=== PATIENT | female | born 1950 | race Two or more races ===

== ENCOUNTER 2017-07-07 14:22 | Emergency (ER) | payer MEDICARE, MEDICAID ==
[~2017-07-07] VITALS: Ht 165.1 cm; Wt 76.2 kg
[~2017-07-07 14:22] MED LIST: DOCU100T2 PO; LEVO500T2 PO; METO25TA6 PO; MULT1CAP34 PO; NITR100C15 PO
--- NOTE | 2017-07-07 16:20 | NUR ---
pt bibra from home to er bed 09. c/o epigastric pain w/ nausea and vomiting since last night. no diarrhrea. 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 awaiting md boyd.
--- NOTE | 2017-07-07 16:25 | NUR ---
dr burgos at bedside for eval.
[2017-07-07] MEDS ORDERED: METOCLOPRAMIDE HCL 10 MG/2 ML VIAL IV ONE (16:30)
[2017-07-07] MEDS ORDERED: FAMOTIDINE (20 MG) 20 MG TABLET PO ONE (16:30)
--- NOTE | 2017-07-07 16:37 | NUR ---
iv line started blood drawn and sent to lab.
--- NOTE | 2017-07-07 16:40 | NUR ---
radiology at bedside for chest xray.
[2017-07-07 16:42] LABS: BASOPHILS % (AUTO) 0.5 % (0.0-2.0); EOSINOPHILS % (AUTO) 0.1 % (0.0-6.0); HEMATOCRIT 37 % (33-45); HEMOGLOBIN 12.5 g/dL (11.5-14.8); LYMPHOCYTES # (AUTO) 1.3 /CMM (0.8-4.8); LYMPHOCYTES % (AUTO) 22.8 % (20.0-44.0); MEAN CORPUSCULAR HEMOGLOBIN 32 PG (26.0-33.0); MEAN CORPUSCULAR HGB CONC 34 g/dl (31.0-36.0); MEAN CORPUSCULAR VOLUME 94 fL (82-100); MONOCYTES # (AUTO) 0.3 /CMM (0.1-1.30); MONOCYTES % (AUTO) 5.6 % (2.0-12.0); NEUTROPHILS # (AUTO) 4.1 /CMM (1.8-8.9); PLATELET COUNT (AUTO) 266 /CMM (150-450); RDW COEFFICIENT OF VARIATION 12.6 (11.5-15.0); RED BLOOD CELL COUNT(AUTO) 3.94 MIL/uL (4.0-5.2); WHITE BLOOD COUNT (AUTO) 5.7 K/uL (4.3-11.0)
[2017-07-07] MEDS ORDERED: METOCLOPRAMIDE HCL 10 MG/2 ML VIAL ONE (16:54)
[2017-07-07] MEDS ORDERED: FAMOTIDINE (20 MG) 20 MG TABLET ONE (16:55)
[2017-07-07 16:57] LABS: ALBUMIN 3.9 g/dL (3.4-5.0); BILIRUBIN,TOTAL 0.3 mg/dL (0.2-1.0); CREATININE 0.8 mg/dL (0.6-1.3); POTASSIUM 3.9 mmol/L (3.5-5.1); TOTAL PROTEIN, SERUM 11.1 g/dL (6.4-8.2)
[2017-07-07 17:16] LABS: APPEARANCE,URINE Slightly Cloudy (CLEAR); BILIRUBIN,URINE Negative (NEGATIVE); BLOOD, URINE Small Ery/uL (NEGATIVE); COLOR,URINE Yellow (YELLOW); KETONES,URINE 80 (NEGATIVE); LEUKOCYTE ESTERASE ,URINE Small (NEGATIVE); NITRITE, URINE Positive (NEGATIVE); PROTEIN,URINE Negative (NEGATIVE); UGLUCOSE Negative (NEGATIVE); UROBILINOGEN,URINE 0.2 EU/dL (0.2)
[2017-07-07 17:31] LABS: BACTERIA,URINE Many /HPF (None Seen); SQUAMOUS EPITHELIAL CELL,UR Few /HPF (None Seen)
[2017-07-07] MEDS ORDERED: LABETALOL HCL IV 100MG VIAL ONE (18:33)
--- NOTE | 2017-07-07 18:35 | NUR ---
pt/'s b/p 182/107. dr burgos made aware. labetalol 10mg ivp given prior to transport.
--- NOTE | 2017-07-07 18:45 | NUR ---
.called [facility] endorsing pt's b/p. pt is asymptomatic. denies headache or sob. d/c back to [facility], [place]. stable condition. IV removed. Catheter intact and site benign. Pressure and 4x4 applied to site. No bleeding noted.
[2017-07-07 18:48] VITALS: BP 182/101
[2017-07-07] MEDS ORDERED: LABETALOL HCL IV 100MG VIAL IV ONE (19:00)
== END 2017-07-07 18:49 | disposition home or self-care (01) ==
LOC: ER 14:24
DX: N39.0 Urinary tract infection, site not specified (principal); R10.13 Epigastric pain; R11.2 Nausea with vomiting, unspecified; I10 Essential (primary) hypertension
CPT/HCPCS: 36415; 71045; 80048; 80076; 81001; 83690; 84484; 85025; 87077; 87086; 87186; 93005; 96374; 99285; A4606; J2765; J3490; 81000-TC; Z7610

== ENCOUNTER 2017-07-16 11:42 | Emergency (ER) | payer MEDICARE, MEDICAID ==
[~2017-07-16] VITALS: Ht 152.4 cm; Wt 90.7 kg
[2017-07-16 11:45] VITALS: BP 165/60
[2017-07-16] MEDS ORDERED: ONDANSETRON HCL/PF 4 MG/2 ML VIAL IVP ONE (15:30)
[2017-07-16] MEDS ORDERED: IV NS 0.9% 1,000 ML BAG IV ONE (15:30)
[2017-07-16] MEDS ORDERED: ONDANSETRON HCL/PF 4 MG/2 ML VIAL ONE (15:38)
--- NOTE | 2017-07-16 15:40 | NUR ---
IV ACCESS STARTED. JESUS DRAWN FOR LABS. MEDICATED ORDERED.
[2017-07-16 15:56] LABS: BASOPHILS % (AUTO) 0.3 % (0.0-2.0); EOSINOPHILS % (AUTO) 0.5 % (0.0-6.0); HEMATOCRIT 35 % (33-45); HEMOGLOBIN 12.1 g/dL (11.5-14.8); LYMPHOCYTES # (AUTO) 1.4 /CMM (0.8-4.8); LYMPHOCYTES % (AUTO) 30.1 % (20.0-44.0); MEAN CORPUSCULAR HEMOGLOBIN 32 PG (26.0-33.0); MEAN CORPUSCULAR HGB CONC 35 g/dl (31.0-36.0); MEAN CORPUSCULAR VOLUME 93 fL (82-100); MONOCYTES # (AUTO) 0.4 /CMM (0.1-1.30); MONOCYTES % (AUTO) 8.8 % (2.0-12.0); NEUTROPHILS # (AUTO) 2.8 /CMM (1.8-8.9); NEUTROPHILS % (AUTO) 60.3 % (43.0-81.0); PLATELET COUNT (AUTO) 271 /CMM (150-450); RDW COEFFICIENT OF VARIATION 12.7 (11.5-15.0); RED BLOOD CELL COUNT(AUTO) 3.75 MIL/uL (4.0-5.2); WHITE BLOOD COUNT (AUTO) 4.6 K/uL (4.3-11.0)
[2017-07-16] MEDS ORDERED: FAMOTIDINE (20 MG) 20 MG TABLET PO ONE (16:00)
--- NOTE | 2017-07-16 16:00 | NUR ---
MAXIMINO AT BS.
[2017-07-16] MEDS ORDERED: FAMOTIDINE (20 MG) 20 MG TABLET ONE (16:02)
--- NOTE | 2017-07-16 16:04 | NUR ---
PT TAKEN TO CT.
[2017-07-16 16:08] LABS: CALCIUM, SERUM 9.7 mg/dL (8.5-10.1); CARBON DIOXIDE 28 mmol/L (21-32); CHLORIDE 100 mmol/L (98-107); CREATININE 0.7 mg/dL (0.6-1.3); GLUCOSE 94 mg/dL (74-106); SODIUM SERUM 135 mmol/L (136-145); UREA NITROGEN, BLOOD 10 mg/dL (7-18)
[2017-07-16 16:13] LABS: ALANINE AMINOTRANSFERASE 20 U/L (12-78); ALBUMIN 3.7 g/dL (3.4-5.0); ALKALINE PHOSPHATASE 68 U/L (46-116); ASPARTATE AMINOTRANSFERASE 15 U/L (15-37); BILIRUBIN,DIRECT 0.1 mg/dL (0.0-0.2); BILIRUBIN,TOTAL 0.3 mg/dL (0.2-1.0); LIPASE 59 U/L (73-393); TOTAL PROTEIN, SERUM 10.2 g/dL (6.4-8.2)
[2017-07-16 16:15] LABS: TROPONIN I < 0.017 ng/mL (0.00-0.056)
[2017-07-16 17:18] LABS: APPEARANCE,URINE Clear (CLEAR); BILIRUBIN,URINE SMALL (NEGATIVE); BLOOD, URINE Trace-intact Ery/uL (NEGATIVE); COLOR,URINE Yellow (YELLOW); KETONES,URINE >=160 (NEGATIVE); LEUKOCYTE ESTERASE ,URINE Small (NEGATIVE); NITRITE, URINE Negative (NEGATIVE); PROTEIN,URINE 30 mg/dl (NEGATIVE); UGLUCOSE Negative (NEGATIVE)
[2017-07-16 17:28] LABS: BACTERIA,URINE Rare /HPF (None Seen); RBC,URINE 0-2 /HPF (0-2); SQUAMOUS EPITHELIAL CELL,UR Few /HPF (None Seen)
--- NOTE | 2017-07-16 17:37 | NUR ---
JERI DAVE ON THE PHONE WITH DR CHRISTIANSON
--- NOTE | 2017-07-16 18:00 | NUR ---
IV removed. Catheter intact and site benign. Pressure and 4x4 applied to site. No bleeding noted.
--- NOTE | 2017-07-16 18:04 | NUR ---
Patient discharged to home in stable condition. Written and verbal after care instructions given. Patient verbalizes understanding of instruction.
== END 2017-07-16 18:05 | disposition home or self-care (01) ==
LOC: ER 11:44
DX: R10.13 Epigastric pain (principal); R11.2 Nausea with vomiting, unspecified; R51 Headache; M19.90 Unspecified osteoarthritis, unspecified site
CPT/HCPCS: 36415; 71045; 74176; 80048; 80076; 81001; 83690; 84484; 85025; 93005; 96361; 96374; 99285; A4606; J2405; J7030; 81000-TC; Z7610

== ENCOUNTER 2019-03-05 17:41 | Emergency (ER) | payer MEDICARE, MEDICAID ==
[2019-03-05] MEDS ORDERED: LOPE2CAP PO (18:39)
[2019-03-05] MEDS ORDERED: HYDR-3976 PO (18:39)
[2019-03-05] MEDS ORDERED: LIDO30CR47 TP (18:39)
[2019-03-05] MEDS ORDERED: AMLO10TA7 PO (18:39)
[2019-03-05] MEDS ORDERED: DICL100G16 TP (18:39)
[2019-03-05] MEDS ORDERED: MAGN400O6 PO (18:39)
[2019-03-05] MEDS ORDERED: LIDO30AD10 TP (18:39)
[2019-03-05] MEDS ORDERED: ESOM20CA PO (18:39)
== END 2019-03-05 21:38 | disposition home or self-care (01) ==
DX: R60.0 Localized edema (principal); M19.90 Unspecified osteoarthritis, unspecified site; Z98.890 Other specified postprocedural states; Z79.899 Other long term (current) drug therapy

== ENCOUNTER 2020-03-06 18:03 | Emergency (ER) | payer OTHER ==
[~2020-03-06] VITALS: Ht 165.1 cm; Wt 92.5 kg
[~2020-03-06 18:03] MED LIST changes: +AMLO10TA7 PO; +DICL100G16 TP; +ESOM20CA PO; +HYDR-3976 PO; -LEVO500T2 PO; +LIDO30AD10 TP; +LIDO30CR47 TP; +LOPE2CAP PO; +MAGN400O6 PO; -NITR100C15 PO
[2020-03-06 19:05] LABS: BASOPHILS % (AUTO) 0.3 % (0.0-2.0); EOSINOPHILS % (AUTO) 1.8 % (0.0-6.0); HEMATOCRIT 26 % (33-45); HEMOGLOBIN 8.5 g/dL (11.5-14.8); LYMPHOCYTES # (AUTO) 1.8 /CMM (0.8-4.8); LYMPHOCYTES % (AUTO) 35.8 % (20.0-44.0); MEAN CORPUSCULAR HGB CONC 33 g/dl (31.0-36.0); MEAN CORPUSCULAR VOLUME 100 fL (82-100); MONOCYTES # (AUTO) 0.6 /CMM (0.1-1.30); MONOCYTES % (AUTO) 11.7 % (2.0-12.0); NEUTROPHILS # (AUTO) 2.5 /CMM (1.8-8.9); NEUTROPHILS % (AUTO) 50.4 % (43.0-81.0); PLATELET COUNT (AUTO) 251 /CMM (150-450); RED BLOOD CELL COUNT(AUTO) 2.58 MIL/uL (4.0-5.2)
--- NOTE | 2020-03-06 19:10 | NUR ---
ASSUMED CARE FOR THIS PT. PT AAOX4, VSS, RESPIRATIONS EVEN AND UNLABORED ON RA W/ NAD NOTED. PT ENDORSES HIP PAIN. PT CONNECTED TO THE TECHNICAL SERVICES LIBRARIAN AND POX. CALL LIGHT WITHIN REACH. WILL CONTINUE TO MONITOR
--- NOTE | 2020-03-06 19:10 | NUR ---
Marcell prather in [facility] - 03/06/20 at 1951 by [facility] ASSUME CARE FOR THIS PATIENT
[2020-03-06 19:14] LABS: CALCIUM, SERUM 8.8 mg/dL (8.5-10.1); CREATININE 0.8 mg/dL (0.6-1.3); POTASSIUM 3.8 mmol/L (3.5-5.1)
--- NOTE | 2020-03-06 19:42 | NUR ---
PT BACK FROM CT
--- NOTE | 2020-03-06 22:58 | NUR ---
[facility] CALLED FOR TRANSPORT. ETA [id number]
--- NOTE | 2020-03-07 | NUR ---
Patient discharged to home in stable condition via ambulance . Written and verbal after care instructions given. Patient verbalizes understanding of instruction.
[2020-03-07 04:14] VITALS: BP 137/89
== END 2020-03-07 ==
LOC: ER 18:08
DX: S82.092A Other fracture of left patella, initial encounter for closed fracture (principal); S52.512A Displaced fracture of left radial styloid process, initial encounter for closed fracture; M54.2 Cervicalgia; R51 Headache; M25.552 Pain in left hip; M25.551 Pain in right hip; I10 Essential (primary) hypertension; Z96.652 Presence of left artificial knee joint; Z79.899 Other long term (current) drug therapy; W06.XXXA Fall from bed, initial encounter; Y93.89 Activity, other specified; Y92.89 Other specified places as the place of occurrence of the external cause; Y99.8 Other external cause status
CPT/HCPCS: 36415; 70450-TC; 72125-TC; 72192-TC; 73030-TC; 73060-TC; 73090-TC; 73564-TC; 80048-TC; 85025-TC; 85730-TC